=== PATIENT | male | born 1980 | race Caucasian/White ===

== ENCOUNTER 2019-12-14 16:59 | Emergency (ER) | payer BC ==
[~2019-12-14] VITALS: Ht 188 cm; Wt 100.0 kg
[2019-12-14] MEDS ORDERED: LORazepam 2 mg/ml vial IV ONE (18:50)
[2019-12-14 19:04] LABS: ALANINE AMINOTRANSFERASE 23 U/L (12-78); ALKALINE PHOSPHATASE 100 IU/L (46-116); ANION GAP 10 (8-16); ASPARTATE AMINO TRANSFERASE 15 U/L (10-37); BASOPHILS # (AUTO) 0.1 X10'3 (0-0.2); BASOPHILS % (AUTO) 0.3 % (0-1); BILIRUBIN,TOTAL 0.3 MG/DL (0.1-1.0); BLOOD UREA NITROGEN 14 MG/DL (7-18); BUN/CREATININE RATIO 17.7 (5.4-32.0); CALCIUM 9.6 MG/DL (8.5-10.1); CHLORIDE 104 MMOL/L (99-107); CREATININE 0.79 MG/DL (0.60-1.10); EOSINOPHILS # (AUTO) 0.1 X10'3 (0-0.9); EOSINOPHILS % (AUTO) 0.4 % (0-6); GLUCOSE 100 MG/DL (70-104); HEMATOCRIT 48.8 % (42.0-52.0); HEMOGLOBIN 16.7 g/dl (14.0-17.9); LYMPHOCYTES # (AUTO) 1.2 X10'3 (1.1-4.8); LYMPHOCYTES % (AUTO) 7.1 % (21-51); MEAN CORPUSCULAR HEMOGLOBIN 32.7 PG (27.0-31.0); MEAN CORPUSCULAR HGB CONC 34.3 g/dL (33.0-36.5); MEAN CORPUSCULAR VOLUME 95.5 FL (78-98); MEAN PLATELET VOLUME 9.6 FL (7.4-10.4); MONOCYTES # (AUTO) 1.2 X10'3 (0-0.9); MONOCYTES % (AUTO) 7.4 % (2-12); NEUTROPHILS % (AUTO) 84.8 % (42-75); PLATELET COUNT 233 X10'3 (140-440); POTASSIUM 4.2 MMOL/L (3.5-5.1); RED BLOOD COUNT 5.11 X10'6 (4.70-6.10); RED CELL DISTRIBUTION WIDTH 13.3 % (11.5-14.5); SODIUM 143 MMOL/L (135-145); TOTAL CARBON DIOXIDE 28.6 MMOL/L (24-32); WHITE BLOOD COUNT 16.5 X10'3 (4.5-11.0); eGFR > 90 ML/MIN
[2019-12-14 19:18] LABS: CLARITY,URINE CLEAR (Clear); COLOR,URINE YELLOW (Yellow); GLUCOSE, URINE NEGATIVE (Neg); KETONES,URINE NEGATIVE (Neg); LEUKOCYTE ESTERASE ,URINE SMALL (Neg); NITRITES, URINE NEGATIVE (Neg); OCCULT BLOOD,URINE NEGATIVE (Neg); PH,URINE 5.5 (4.8-8.0); PROTEIN,URINE TRACE mg/dl (Neg); UROBILINOGEN,URINE 0.2 E.U/dL (0.2-1.0)
[2019-12-14] MEDS ORDERED: LORazepam 2 mg/ml vial IM ONE (19:20)
[2019-12-14 19:28] LABS: UA COLLECTION TYPE OTHER
[2019-12-14 19:29] LABS: BACTERIA,URINE FEW /HPF (Neg); RBC,URINE 0-2 /HPF (0-2); SQUAMOUS EPITHELIAL CELL,UR FEW /LPF (FEW)
[2019-12-14] MEDS ORDERED: piperacillin/tazo 3.375gm/50ml 50 ML IV ONE (19:30)
[2019-12-14] MEDS ORDERED: vancomycin/NS 1 GM ADD-VANTAGE 250 ML IV ONE (19:30)
--- NOTE | 2019-12-14 19:44 | NUR ---
WILLIAN [phone] AND CAREGIVER
[2019-12-14] MEDS ORDERED: fentaNYL/PF 50MCG/1 ML 2ML syringe IV ONE ×2 (20:25→23:05)
[2019-12-14] MEDS ORDERED: levetiracetam inj 500 MG in normal saline 100ml IV soln 95 ML IV ONE (22:25)
[2019-12-14] MEDS ORDERED: Levetiracetam-NS 500mg/100ml 100 ML IV ONE (22:29)
--- NOTE | 2019-12-14 23:12 | NUR ---
spoke with [facility]. they are trying to find a facility for transfer
--- NOTE | 2019-12-14 23:15 | NUR ---
pt appears to be in pain. He bears down and his HR briefly elevates. New orders recieved fentynal 75 mcq IV once
[2019-12-14 23:35] VITALS: BP 140/87
[2019-12-15] MEDS ORDERED: piperacillin/tazo 3.375gm/50ml 50 ML IV ONE (02:00)
[2019-12-15] MEDS ORDERED: fentaNYL/PF 50MCG/1 ML 2ML syringe IV ONE (03:10)
[2019-12-15] MEDS ORDERED: FLO0.4C PO (03:18)
[2019-12-15] MEDS ORDERED: OXYC-134 PO (03:18)
[2019-12-15] MEDS ORDERED: LEVETIRACETAM GT (04:31)
[2019-12-15] MEDS ORDERED: [UNRECOGNIZED DRUG - CODE] GT (04:31)
[2019-12-15] MEDS ORDERED: LORAZEPAM GT (04:31)
[2019-12-15] MEDS ORDERED: ASPI-1144 GT (04:31)
[2019-12-15] MEDS ORDERED: DOCU283E RC (04:31)
[2019-12-15] MEDS ORDERED: LACO200T2 PO (04:31)
[2019-12-15] MEDS ORDERED: VITA-321 GT (04:37)
[2019-12-15] MEDS ORDERED: MELA1LIQ GT (04:38)
[2019-12-15] MEDS ORDERED: TRAM50TA2 PO (04:40)
[2019-12-15] MEDS ORDERED: HYDR-4353 PO (04:40)
[2019-12-15] MEDS ORDERED: VITA-268 PO (04:41)
[2019-12-15] MEDS ORDERED: MULT-661 GT (04:43)
== END 2019-12-15 05:45 | disposition short-term general hospital (02) ==
LOC: ER 17:00
DX: T85.618A Breakdown (mechanical) of other specified internal prosthetic devices, implants and grafts, initial encounter (principal); G93.89 Other specified disorders of brain; J32.2 Chronic ethmoidal sinusitis; Z20.828 Contact with and (suspected) exposure to other viral communicable diseases; Z86.69 Personal history of other diseases of the nervous system and sense organs; Z98.890 Other specified postprocedural states; Z79.82 Long term (current) use of aspirin; Z79.899 Other long term (current) drug therapy; Y92.89 Other specified places as the place of occurrence of the external cause
CPT/HCPCS: 36415; 70450; 71045; 74176; 80053; 81001; 84145; 85025; 87077; 87088; 87186; 87635; 93005; 96365; 96366; 96368; 96372; 96375; 96376; 99291; C9803; J1953; J2060; J2543; J3010; J3370; 99285

== ENCOUNTER 2020-02-01 17:58 | Emergency (ER) | payer BC, MEDICARE ==
[~2020-02-01] VITALS: Ht 188 cm; Wt 79.5 kg
[~2020-02-01 17:58] MED LIST: ASPI-1144 GT; DOCU283E RC; HYDR-4353 PO; LACO200T2 PO; LEVETIRACETAM GT; LORAZEPAM GT; MELA1LIQ GT; MULT-661 GT; TRAM50TA2 PO; VITA-268 PO; VITA-321 GT; [UNRECOGNIZED DRUG - CODE] GT
[2020-02-01 18:04] VITALS: BP 116/65
--- NOTE | 2020-02-01 20:23 | NUR ---
Pt has a tunneled catheter and we are unable to remove it in the ER.
== END 2020-02-01 20:24 | disposition home or self-care (01) ==
LOC: ER 17:58
DX: Z45.2 Encounter for adjustment and management of vascular access device (principal); Z86.69 Personal history of other diseases of the nervous system and sense organs; Z87.442 Personal history of urinary calculi; Z98.890 Other specified postprocedural states; Z79.82 Long term (current) use of aspirin; Z79.899 Other long term (current) drug therapy
CPT/HCPCS: 99281